=== PATIENT | female | born 1995 | race African-American/Black ===

== ENCOUNTER 2019-08-03 12:11 | Emergency (ER) | payer SELFPAY ==
--- NOTE | 2019-08-03 12:18 | PDOC ---
History of Present Illness - General Chief Complaint: Vaginal Bleeding Stated Complaint: R/O MISSCARIAGE Time Seen by Provider: 08/03/19 12:18 History Source: Patient Exam Limitations: No Limitations - History of Present Illness Initial Comments: 08/03/19 12:42 Alycia Choi is a 24yF 12 weeks presenting w vaginal bleeding and parts passage. 30 min ago, sudden onset gross vaginal bleeding w clots , suprapubic pain, subsequent passage of visualized fetus in bathtub. Currently has mild vaginal bleeding, denies AB pain. Recently got insurance to see OBGYN Dr Kennedy but hasn't had any care yet. Taking vitamins. Denies alcohol/smoking/illicit drugs, trauma. Denies fever, nausea/vomiting, chest pain, SOB. Past History - Past Medical History Allergies/Adverse Reactions: Allergies Allergy/AdvReac Type Severity Reaction Status Date / Time No Known Allergies Allergy Verified 08/03/19 12:30 Home Medications: Ambulatory Orders Misoprostol [Cytotec -] 200 mcg PO TID 3 Days #9 tablet 08/03/19 Review of Systems - Review of Systems Constitutional: No: Chills, Fever HEENTM: No: Eye Pain, Recent change in vision, Nose Congestion, Throat Pain Respiratory: No: Cough, Shortness of Breath Cardiac (ROS): No: Chest Pain, Palpitations, Syncope ABD/GI: No: Abdominal Distended, Constipated, Diarrhea, Nausea, Vomiting : No: Burning, Dysuria, Flank Pain, Hematuria Musculoskeletal: No: Back Pain, Joint Pain Integumentary: No: Bruising, Flushing, Lesions Neurological: No: Headache, Seizure, Tingling, Tremors Psychiatric: No: Anxiety, Depression Endocrine: No: Excessive Sweating, Flushing, Intolerance to Cold, Intolerance to Heat Hematologic/Lymphatic: Yes: Blood Clots. No: Anemia *Physical Exam - Physical Exam General Appearance: Yes: Nourished, Appropriately Dressed, Mild Distress HEENT: positive: EOMI, BHAKTI, Normal Voice, Hearing Grossly Normal. negative: Scleral Icterus (R), Scleral Icterus (L), Rhinorrhea, Sinus Tenderness Respiratory/Chest: positive: Lungs Clear, Normal Breath Sounds. negative: Chest Tender, Respiratory Distress, Crackles, Rales, Rhonchi, Stridor, Wheezing Cardiovascular: positive: Regular Rhythm, Regular Rate, S1, S2. negative: Edema , Murmur Female Pelvic Exam: positive: normal external exam, normal adnexa, normal size ovaries, vaginal bleeding (gross bleeding w large clots). negative: cervical os closed (3cm open os), CMT, discharge, adnexal tenderness Gastrointestinal/Abdominal: positive: Normal Bowel Sounds, Flat, Soft, Distended (minimally distended), Other (healed umbilical piercing scar). negative: Organomegaly, Mass Musculoskeletal: negative: CVA Tenderness (R), CVA Tenderness (L) Extremity: positive: Normal Capillary Refill Integumentary: positive: Normal Color. negative: Rash, Swelling Neurologic: positive: family program specialist II-XII NML intact, Fully Oriented, Alert, Normal Response, Responsive. negative: Normal Mood/Affect (tearful), Sensory Deficit, Confused, Disoriented ED Treatment Course - LABORATORY CBC & Chemistry Diagram: 08/03/19 12:40 08/03/19 12:40 Medical Decision Making - Medical Decision Making 08/03/19 12:51 CBC CMP HCG T&S coags Pelvic exam showed gross blood w large blood clots in vaginal canal, 3cm open cervical os, no parts visualized, no CMT, no uterus/adnexal tenderness TVUS shows no intraluminal gestational sac, retained products of conception blood clots, thickened endometrium w heterogeneous echotexture and color CBC, CMP, coags normal B-HCG 960 --- Alycia Choi is a 24yF 12 weeks presenting w vaginal bleeding and parts passage at 12am d/t incomplete (open os, visualized parts passage, retained conception products inc clots on US). B-HCG 960. Hemodynamically stable, denies pain. Low concern for endometritis (afebrile, normal WBC) vs anemia (normal Hgb) vs Rh alloimmunization (AB+). Given 1L NS Dr Kennedy is not based in [place] anymore. Consulted Dr Price, advised give cyctec 400 in hospital, 200 cytotec TID x3d prescription, f/u in clinic . DC home w OBGYN Dr Price f/u, cytotec prescription, repeat HCG Discharge - Discharge Information Problems reviewed: Yes Clinical Impression/Diagnosis: Incomplete Condition: Stable Disposition: HOME - Admission No - Additional Discharge Information Prescriptions: Misoprostol [Cytotec -] 200 mcg PO TID 3 Days #9 tablet - Follow up/Referral Referrals: Thomas John MD [Primary Care Provider] - Carisa Moya MD [Staff Physician] - - Patient Discharge Instructions Additional Instructions: You were seen for vaginal bleeding. Your ultrasound shows that you had a miscarriage. You will have some bleeding and pain over the next few days. You can take tylenol if you continue to have pain. Please take the prescribed cytotec as directed Please make an appointment to see your OBGYN Dr Moya on Monday. Go to your OBGYN clinic or come back to the ED to have your hormone B-HCG rechecked on Monday 08/06 and Thursday 08/09 Come back to the ED if you have fevers, vomiting, lightheaded, or worsening abdominal pain. - Post Discharge Activity
[2019-08-03 13:08] VITALS: BMI 25.8
[2019-08-03] MEDS ORDERED: SODIUM CHLORIDE 0.9% 500 ML INFUS.BAG IV ONE (13:11)
[2019-08-03 13:22] LABS: BASO % 0.2 % (0-2.0); EOS % 2.4 % (0-4.5); HEMATOCRIT 33.5 % (32.4-45.2); LYMPH % 21.8 % (8-40); MEAN CELL VOLUME 94.2 fl (80-96); MEAN PLT VOLUME 7.8 fl (7.5-11.1); MONO % 5.4 % (3.8-10.2); NEUT % 70.2 % (42.8-82.8); PLATELET COUNT 361 K/MM3 (134-434); RBC 3.56 M/mm3 (3.60-5.2); RDW 13.1 % (11.6-15.6); WHITE BLOOD COUNT 8.4 K/mm3 (4.0-10.0)
[2019-08-03 13:30] LABS: INR 0.97 (0.83-1.09); PROTHROMBIN TIME (PATIENT) 11.4 SEC (9.7-13.0)
[2019-08-03 14:12] LABS: ALBUMIN 3.9 g/dl (3.4-5.0); BILIRUBIN,TOTAL 0.4 mg/dL (0.2-1); BLOOD UREA NITROGEN 7.7 mg/dL (7-18); CALCIUM 9.1 mg/dL (8.5-10.1); CREATININE 0.6 mg/dL (0.55-1.3); TOT PROT 7.4 g/dl (6.4-8.2)
--- NOTE | 2019-08-03 15:07 | PDOC ---
Documentation entered by Ashleigh Benton SCRIBE, acting as scribe for Chloe Bright MD. Chloe Bright MD: This documentation has been prepared by the [place] Adrianna, SCRIBE, under my direction and personally reviewed by me in its entirety. I confirm that the documentation accurately reflects all work, treatment, procedures, and medical decision making performed by me. Attending Attestation - Resident Resident Name: TonyaForeign - ED Attending Attestation I have performed the following: I have examined & evaluated the patient, The case was reviewed & discussed with the resident, I agree w/resident's findings & plan, Exceptions are as noted - HPI HPI: The patient is a 24 year old female currently at ~12 weeks gestation, with significant PMH, who presents to the ED for evaluation of vaginal bleeding that began 30 minutes prior to arrival. Patient notes that earlier today she developed sudden onset vaginal bleeding with associated suprapubic pain. She reports passing large clots with a significant amount of bleeding. Patient notes that when she went to clean herself in the bathtub, she saw that she passed a fetus. She has not had any care at this time. No known IUP or ultrasound visualization at this time. Allergies: NKA, NKDA Surgical History: None reported Social History: Denies EtOH, tobacco, or illicit drug use PCP: Dr. John - Physicial Exam PE: 08/03/19 15:01 awake alert nad lungs clear heart reg tachy no mrg abd soft nt nd ext. wwp. - Medical Decision Making 08/03/19 15:01 24 yo F with currently 12 weeks , here with vaginal bleeding started . thought she may have passed some tissue. no abd pain currently. bleeding has decreased differential incomplete ab, complete ab, ectopic. plan tvus. tvus performed, no gestational sac. no yolk sac. bhcg low 960 08/03/19 15:03 08/03/19 15:05 tp will require 48 hour bhcg, and close followup. will call dr ruiz, awaiting callback.
[2019-08-03] MEDS ORDERED: MISOPROSTOL 200 MCG TABLET PO ONE (15:40)
[2019-08-03 16:35] VITALS: BP 112/79; PULSE 76; TEMP 97.9
== END 2019-08-03 16:37 | disposition home or self-care (01) ==
LOC: JER 12:11
PROC: 3E0337Z Introduction of Electrolytic and Water Balance Substance into Peripheral Vein, Percutaneous Approach (ICD-10-PCS; principal; 2019-08-03)
DX: O03.4 Incomplete spontaneous abortion without complication (principal)
CPT/HCPCS: 36415; 76830-TC; 80053; 84702; 85025; 85610; 86850; 86900; 86901; 99282-25

== ENCOUNTER 2019-08-09 16:07 | Emergency (ER) | payer OTHER ==
[2019-08-09 16:15] VITALS: BP 117/88; PULSE 100; TEMP 98; BMI 29.0
--- NOTE | 2019-08-09 16:15 | PDOC ---
Rapid Medical Evaluation Time Seen by Provider: 08/09/19 16:11 Medical Evaluation: Allergies Allergy/AdvReac Type Severity Reaction Status Date / Time No Known Allergies Allergy Verified 08/03/19 12:30 08/09/19 16:12 Pt c/o: here for f/u. last ED visit miscarried and given po med. 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
--- NOTE | 2019-08-09 19:06 | PDOC ---
History of Present Illness - General Chief Complaint: Revisit, Lab Variance Stated Complaint: FOLLOW UP Time Seen by Provider: 08/09/19 16:11 History Source: Patient Exam Limitations: Clinical Condition - History of Present Illness Initial Comments: 08/09/19 19:11 Patient with no significant past medical history present for follow-up beta-hCG and miscarriage status post presenting 6 days ago with vaginal bleeding and 9 weeks and treated with 3-day course of Cytotec. Patient reported no bleeding now will have brown discharge. Patient was advised to follow-up with your [employer] 3 days ago which she reported did but did not like the [employer] office so she came back here. 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 Denies nausea, vomiting, fever, pelvic pain. Denies any other symptoms. Beta-hCG from previous visit was 900. Official pelvic ultrasound done 6 days ago shows retained POC and blood. Is this a multiple visit Asthma Patient?: No Timing/Duration: 1 week Severity: mild Past History - Past Medical History Allergies/Adverse Reactions: Allergies Allergy/AdvReac Type Severity Reaction Status Date / Time No Known Allergies Allergy Verified 08/09/19 16:15 Home Medications: Ambulatory Orders Misoprostol [Cytotec] 200 mcg PO TID #9 tablet 08/03/19 Ibuprofen 800 mg PO Q8H PRN #20 tablet 08/09/19 COPD: No - Psycho Social/Smoking Cessation Hx Smoking History: Never smoked Have you smoked in the past 12 months: No Hx Alcohol Use: No Drug/Substance Use Hx: No Review of Systems - Review of Systems Able to Perform ROS?: Yes Is the patient limited Romansh proficient: No Constitutional: No: Chills, Fever, Malaise HEENTM: No: Symptoms Reported Respiratory: No: Symptoms reported Cardiac (ROS): No: Symptoms Reported ABD/GI: Yes: Symptoms Reported, See HPI, Abdominal cramping (intermittent cramping lower abdominal pain). No: Nausea, Poor Appetite, Vomiting, Indigestion : No: Symptoms Reported Musculoskeletal: No: Symptoms Reported Integumentary: No: Symptoms Reported Neurological: No: Symptoms reported All Other Systems: Reviewed and Negative *Physical Exam - Vital Signs Last Vital Signs Temp Pulse Resp BP Pulse Ox 98 F 100 H 18 117/88 100 08/09/19 16:08 08/09/19 16:08 08/09/19 16:08 08/09/19 16:08 08/09/19 16:08 - Physical Exam General Appearance: Yes: Nourished, Appropriately Dressed. No: Apparent Distress HEENT: positive: Normal ENT Inspection Neck: positive: Supple Respiratory/Chest: positive: Lungs Clear, Normal Breath Sounds. negative: Respiratory Distress, Accessory Muscle Use Cardiovascular: positive: Regular Rhythm, Regular Rate Female Pelvic Exam: positive: normal external exam, cervical os closed, vaginal bleeding (scant amount of dark brown discharge in vaginal vault. no active vaginal bleeding). negative: CMT, lesions, adnexal tenderness Gastrointestinal/Abdominal: positive: Normal Bowel Sounds, Flat. negative: Tender Musculoskeletal: positive: Normal Inspection. negative: CVA Tenderness Extremity: positive: Normal Capillary Refill, Normal Inspection Integumentary: positive: Normal Color Neurologic: positive: Fully Oriented, Alert, Normal Mood/Affect, Normal Response ED Treatment Course - ADDITIONAL ORDERS Additional order review: Laboratory Results 08/09/19 18:18 Beta HCG, Quant 46.7 Medical Decision Making - Medical Decision Making 08/09/19 19:12 Patient with no significant past medical history present for follow-up beta-hCG and miscarriage status post presenting 6 days ago with vaginal bleeding and 9 weeks and treated with 3-day course of Cytotec. Patient reported no bleeding now will have brown discharge. Patient was advised to follow-up with your [employer] 3 days ago which she reported did but did not like the [employer] office so she came back here. 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 Denies nausea, vomiting, fever, pelvic pain. Denies any other symptoms. Beta-hCG from previous visit was 900. Official pelvic ultrasound done 6 days ago shows retained POC and blood. Exam significant for scant amount of dark discharge in vaginal vault with no active bleeding. Cervical os closed. Bedside ultrasound shows thin endometrium with no retained POC. Beta-hCG done today is 49 which is a significant reduction from 906 days ago. Patient asymptomatic and stable for discharge with Motrin as needed for pain and follow-up with your [employer] in a week. Plan discussed with patient patient agrees with plan Discharge - Discharge Information Problems reviewed: Yes Clinical Impression/Diagnosis: Miscarriage, Complete Condition: Stable Disposition: HOME - Admission No - Additional Discharge Information Prescriptions: Ibuprofen 800 mg PO Q8H PRN #20 tablet PRN Reason: pain - Follow up/Referral Referrals: Georgia Kennedy DO [Staff Physician] - - Patient Discharge Instructions Patient Printed Discharge Instructions: DI for Miscarriage Additional Instructions: Your blood work shows hormone level of 49 from 900-week ago. Ultrasound shows no retained products of . Follow-up with your [employer] as scheduled in 1 week. Take Motrin as needed for pain - Post Discharge Activity
== END 2019-08-09 19:31 | disposition home or self-care (01) ==
LOC: JERFT 16:07
DX: O26.891 Other specified pregnancy related conditions, first trimester (principal); O03.9 Complete or unspecified spontaneous abortion without complication; Z3A.09 9 weeks gestation of pregnancy
CPT/HCPCS: 36415; 84702; 99281-25